=== PATIENT | male | born 1970 | race Caucasian/White ===

== ENCOUNTER 2021-03-20 10:03 | Emergency (ER) | payer OTHER ==
[2021-03-20 10:50] LABS: BASOPHIL 0.3 % (0-2); EOSINOPHIL 0.3 % (0-5); HCT 42.8 % (42.0-52.0); HGB 15.1 g/dl (13.2-18.0); LYMPHOCYTE 20.5 % (15-48); MCH 27.8 pg (25.0-31.0); MCHC 35.3 g/dL (32.0-36.0); MCV 78.7 fL (78.0-100.0); MONOCYTE 10.5 % (0-12); MPV 8.8 fL (6.0-9.5); NEUTROPHIL 67.7 % (41-80); NRBC 0; PLT 269 K/uL (150-400); RBC 5.44 M/uL (4.70-6.00); RDW 12.3 % (11.5-14.0); WBC 7.7 K/uL (4.0-10.5)
[2021-03-20 11:10] LABS: BILIRUBIN NEGATIVE (NEGATIVE); BLOOD NEGATIVE Ery/uL (NEGATIVE); CLARITY CLEAR (CLEAR); COLOR YELLOW (YELLOW); GLUCOSE (U) 3+ mg/dL (NORMAL); LEUKOCYTES NEGATIVE Leu/uL (NEGATIVE); NITRITE NEGATIVE (NEGATIVE); PROTEIN NEGATIVE (NEGATIVE); SPECIFIC GRAVITY <=1.005 (1.001-1.030); UROBILINOGEN 0.2 mg/dL (0.2-1.0)
[2021-03-20 11:13] LABS: ALBUMIN 3.4 g/dL (3.4-5.0); BILIRUBIN - TOTAL 0.8 mg/dL (0.2-1.0); BUN/CREAT RATIO (CALC) 14.1 RATIO; CREATININE 0.64 mg/dL (0.67-1.17); GLOBULIN (CALCULATION) 3.9 g/dL; POTASSIUM 4.1 mmol/L (3.5-5.1); TOTAL PROTEIN 7.3 g/dL (6.4-8.2)
== END 2021-03-20 15:55 | disposition home or self-care (01) ==
LOC: FER 10:03
PROVIDERS: Internal Medicine
DX: U07.1 COVID-19 (principal); J12.82 Pneumonia due to coronavirus disease 2019; I51.9 Heart disease, unspecified; I10 Essential (primary) hypertension; Z95.5 Presence of coronary angioplasty implant and graft; Z88.6 Allergy status to analgesic agent
CPT/HCPCS: 36415; 71045; 71275; 80053; 81003; 85025; J7030; M0243; Q0244; Q9967